=== PATIENT | female | born 1975 | race Caucasian/White ===

== ENCOUNTER → 2021-12-28 | Outpatient (CLI) | payer BC | LOC: KOH-I 13:36 | DX: M79.672 Pain in left foot (principal); M79.671 Pain in right foot; M19.071 Primary osteoarthritis, right ankle and foot; M77.51 Other enthesopathy of right foot and ankle; M25.474 Effusion, right foot; M19.072 Primary osteoarthritis, left ankle and foot; M77.52 Other enthesopathy of left foot and ankle; M25.475 Effusion, left foot | CPT/HCPCS: 73630 ==